=== PATIENT | female | born 1990 | race Caucasian/White ===

== ENCOUNTER 2020-04-27 10:36 | Emergency (ER) | payer MEDICAID ==
[~2020-04-27] VITALS: Ht 154.9 cm; Wt 62.1 kg
[2020-04-27 10:51] VITALS: BP_SYST 116
--- NOTE | 2020-04-27 11:55 | NUR ---
RECEIVED AND IN ROOM, SANJUANITA TO ASSUME CARE. CALM, ALERT, RESP UNLABORED, C/O RT FLANK PAIN, DENIES N,V,D. DENIES CP/SOB OR FEVERS
--- NOTE | 2020-04-27 11:55 | NUR ---
AMBULATED TO BED 8
--- NOTE | 2020-04-27 12:20 | NUR ---
DR CELIS IN TO ASSESS
[2020-04-27 12:33] LABS: BILIRUBIN,URINE NEGATIVE (NEGATIVE); CLARITY/URINE CLEAR (CLEAR); COLOR,URINE YELLOW (YELLOW); GLUCOSE,URINE NEGATIVE (NEGATIVE); KETONES,URINE NEGATIVE (NEGATIVE); LEUKOCYTE ESTERASE ,URINE 2+ (NEGATIVE); NITRITE, URINE NEGATIVE (NEGATIVE); PH,URINE 6.5 (5.0-8.0); PROTEIN URINE NEGATIVE (NEGATIVE); UROBILINOGEN,URINE 0.2 (0.2-1.0)
[2020-04-27 12:34] LABS: BLOOD, URINE TRACE (NEGATIVE)
--- NOTE | 2020-04-27 12:37 | NUR ---
BLOOD WORK OBTAINED, CT ORDERED. PT AWARE
[2020-04-27 12:43] LABS: BACTERIA,URINE RARE /HPF (None Seen)
[2020-04-27 12:48] LABS: BASOPHILS % (AUTO) 0.3 % (0.0-2.0); EOSINOPHILS # (AUTO) 0.1 K/uL (0.0-0.4); EOSINOPHILS % (AUTO) 1.1 % (0.0-4.0); HEMATOCRIT 30.7 % (36-48); HEMOGLOBIN 9.4 g/dL (12.0-16.0); LYMPHOCYTES # (AUTO) 2.2 K/uL (1.0-5.5); LYMPHOCYTES % (AUTO) 32.9 % (20.5-51.5); MEAN CORPUSCULAR HEMOGLOBIN 21 pg (27-31); MEAN CORPUSCULAR HGB CONC 31 % (32-36); MEAN CORPUSCULAR VOLUME 69 fL (79.0-98.0); MONOCYTES # (AUTO) 0.4 K/uL (0.0-1.0); MONOCYTES % (AUTO) 5.5 % (1.7-9.3); NEUTROPHILS # (AUTO) 3.9 K/uL (1.8-7.7); NEUTROPHILS % (AUTO) 60.2 % (40.0-70.0); PLATELET COUNT (AUTO) 367 K/uL (130-430); RED BLOOD CELL COUNT(AUTO) 4.46 MIL/uL (4.2-6.2); RED CELL DISTRIBUTION WIDTH 19.8 % (9.0-15.0); WHITE BLOOD COUNT (AUTO) 6.6 K/uL (4.8-10.8)
--- NOTE | 2020-04-27 12:55 | NUR ---
PT AMBULATED TO CT
[2020-04-27 13:08] LABS: CREATININE 0.64 mg/dL (0.55-1.30); POTASSIUM 3.5 mmol/L (3.5-5.1)
[2020-04-27 13:13] LABS: ALBUMIN 4.1 g/dL (3.4-4.8); BILIRUBIN,DIRECT 0.2 mg/dL (0.0-0.3); TOTAL BILIRUBIN 0.3 mg/dL (0.0-1.0)
--- NOTE | 2020-04-27 13:25 | NUR ---
ALERT, CALM, RESP UNLABORED, SKIN WARM AND DRY
[2020-04-27 13:30] VITALS: BP_SYST 113
--- NOTE | 2020-04-27 13:35 | NUR ---
Patient given written and verbal discharge instructions and verbalizes understanding. ER MD discussed with patient the results and treatment provided. Patient in stable condition. ID arm band removed. Rx of ABX given. Patient educated on pain management and to follow up with PMD. Pain Scale 0/10 Opportunity for questions provided and answered. Medication side effect fact sheet provided.
== END 2020-04-27 13:35 | disposition home or self-care (01) ==
LOC: SED 10:36
DX: N10 Acute pyelonephritis (principal)
CPT/HCPCS: 36415; 76376; 80048; 80076; 81000-TC; 83690-TC; 85025; 87086; 99284